=== PATIENT | male | born 1985 | race Caucasian/White ===

== ENCOUNTER 2023-11-15 07:44 | Emergency (ER) | payer BC, OTHER ==
[2023-11-15] MEDS ORDERED: Ibuprofen 600 MG Tab PO ONE (07:52)
[2023-11-15 07:57] VITALS: BP 133/82; PULSE 77
== END 2023-11-15 09:04 | disposition home or self-care (01) ==
LOC: DL.ED 07:44
DX: S82.302A Unspecified fracture of lower end of left tibia, initial encounter for closed fracture (principal); V86.56XA Driver of dirt bike or motor/cross bike injured in nontraffic accident, initial encounter; Y92.410 Unspecified street and highway as the place of occurrence of the external cause
CPT/HCPCS: 29515; 73610; 99282; 99284; A9270